=== PATIENT | male | born 1970 | race Caucasian/White ===

== ENCOUNTER 2021-05-01 15:49 | Outpatient (REF) | payer MEDICAID, SELFPAY ==
--- NOTE | ~2021-05-01 | US_ITS ---
EXAMINATION: US VENOUS ULTRASOUND WITH DOPPLER LOWER EXTREMITY, RIGHT CLINICAL INFORMATION: Right lower extremity pain. Evaluate for a deep vein thrombosis. COMPARISON: None TECHNIQUE: Ultrasound of the deep veins is performed from the hip to the calf with compression sonography and color and pulse Doppler assessment. Spectral analysis with color-flow imaging is performed. FINDINGS: There is normal venous compression and respiratory variation and augmented flow. The visualized common femoral vein, superficial femoral vein, profunda femoral vein, popliteal vein, and the trifurcation region shows no evidence of deep venous thrombosis. 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 If the patient's symptoms persist, follow-up ultrasound in 5 days 7 days might be of value to exclude proximal propagation from a nonvisualized calf vein. US/US venous duplex LE RT IMPRESSION: No DVT demonstrated in the right lower extremity. 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
== END 2021-05-01 15:50 | disposition home or self-care (01) ==
LOC: HO.US 15:49
PROVIDERS: Visit Provider Internal Medicine
DX: M79.604 Pain in right leg (principal)
CPT/HCPCS: 93971

== ENCOUNTER 2021-05-03 13:56 | Outpatient (REF) | payer MEDICAID, SELFPAY ==
--- NOTE | ~2021-05-03 | XR_ITS ---
EXAMINATION: XR ANKLE, RIGHT CLINICAL INFORMATION: Pain COMPARISON: Previous x-ray September 2018 TECHNIQUE: AP, lateral, and mortise views of the right ankle. FINDINGS: The bones and soft tissues are normal. No fracture. Alignment is anatomic. Joint spaces are maintained. No joint effusion. XR/XR ankle RT min 3V IMPRESSION: Normal right ankle.
== END 2021-05-03 13:57 | disposition home or self-care (01) ==
LOC: HO.XRAY 13:56
PROVIDERS: PCP Internal Medicine; Visit Provider Internal Medicine
DX: M79.604 Pain in right leg (principal)
CPT/HCPCS: 73610

== ENCOUNTER 2021-05-22 08:07 | Outpatient (REF) | payer MEDICAID, SELFPAY ==
--- NOTE | ~2021-05-22 | XR_ITS ---
EXAMINATION: XR KNEE-BILATERAL CLINICAL INFORMATION: Pain unspecified knee. COMPARISON: None TECHNIQUE: Upright frontal views of both knees and lateral and patellar view of the right knee were obtained. FINDINGS: Right knee: Moderate to severe medial compartmental and mild lateral and patellofemoral compartmental osteoarthrosis related changes are present. Specific note is made of moderate size osteophyte formation along the articular surface of both tibia and fibula. No evidence of any joint effusion. No superimposed fracture and/or subluxation or dislocation. Limited frontal view of the left knee appears unremarkable. XR/XR knee standing BI IMPRESSION: 1. Moderate to severe medial compartmental osteoarthrosis and mild lateral and patellofemoral compartmental osteoarthrosis of the right knee. 2. Limited frontal view only radiograph of the left knee appears unremarkable.
--- NOTE | ~2021-05-22 | XR_ITS ---
EXAMINATION: XR KNEE-BILATERAL CLINICAL INFORMATION: Pain unspecified knee. COMPARISON: None TECHNIQUE: Upright frontal views of both knees and lateral and patellar view of the right knee were obtained. FINDINGS: Right knee: Moderate to severe medial compartmental and mild lateral and patellofemoral compartmental osteoarthrosis related changes are present. Specific note is made of moderate size osteophyte formation along the articular surface of both tibia and fibula. No evidence of any joint effusion. No superimposed fracture and/or subluxation or dislocation. Limited frontal view of the left knee appears unremarkable. XR/XR knee RT 2V IMPRESSION: 1. Moderate to severe medial compartmental osteoarthrosis and mild lateral and patellofemoral compartmental osteoarthrosis of the right knee. 2. Limited frontal view only radiograph of the left knee appears unremarkable.
== END 2021-05-22 08:08 | disposition home or self-care (01) ==
LOC: HO.HOSX 08:07
PROVIDERS: Visit Provider Physician Assistant
DX: M17.11 Unilateral primary osteoarthritis, right knee (principal)
CPT/HCPCS: 20610; 73560; 73565; 99202; J1040

== ENCOUNTER → 2021-06-13 14:56 | Outpatient (BNVA) | payer MEDICAID, SELFPAY | PROVIDERS: PCP Internal Medicine; Visit Provider Nurse Practitioner Family | DX: M47.816 Spondylosis without myelopathy or radiculopathy, lumbar region (principal); M62.838 Other muscle spasm | CPT/HCPCS: 99202 ==

== ENCOUNTER → 2021-09-01 15:57 | Outpatient (BNVA) | payer MEDICAID, SELFPAY | PROVIDERS: PCP Internal Medicine; Visit Provider Nurse Practitioner Family | DX: M17.11 Unilateral primary osteoarthritis, right knee (principal); M62.838 Other muscle spasm; M48.061 Spinal stenosis, lumbar region without neurogenic claudication; M54.16 Radiculopathy, lumbar region | CPT/HCPCS: 99212 ==

== ENCOUNTER → 2021-09-04 13:01 | Outpatient (BNVA) | payer MEDICAID, SELFPAY | PROVIDERS: PCP Internal Medicine; Visit Provider Internal Medicine | DX: M17.11 Unilateral primary osteoarthritis, right knee (principal) | CPT/HCPCS: 20610; J3300 ==

== ENCOUNTER 2021-09-25 14:09 | Outpatient (REF) | payer MEDICAID, SELFPAY | END 2021-09-25 14:10 | disposition home or self-care (01) | LOC: HO.MRI 14:09 | PROVIDERS: Visit Provider Physician Assistant | DX: Z13.89 Encounter for screening for other disorder (principal) ==

== ENCOUNTER 2021-10-11 19:04 | Outpatient (REF) | payer MEDICAID, SELFPAY ==
--- NOTE | ~2021-10-11 | MR_ITS ---
EXAMINATION: MR LUMBAR SPINE WITHOUT CONTRAST CLINICAL INFORMATION: Lumbar radiculopathy. Right leg pain. COMPARISON: MRI dated 08/26/2019. TECHNIQUE: MRI of the lumbar spine was obtained using routine sequences without contrast. FINDINGS: VERTEBRAL BODIES AND PARASPINAL STRUCTURES: The marrow signal is homogeneous. There are no compression fractures. Duap-gk-[id number] loss of disc height and reduced intradiscal signal noted at the L4-L5 level. No new subluxations evident. The paraspinal soft tissues appear normal. The imaged bony pelvis is unremarkable. CONUS MEDULLARIS AND CAUDA EQUINA: Normal, terminating at the level of T12-L1. No lower cord signal abnormality is seen. The cauda equina nerve roots are normal. SPINAL LEVELS: L1-L2: No significant disc pathology. Patent central canal and foramina. L2-L3: Broad-based left foraminal/extraforaminal disc protrusion has increased in size with significant encroachment and further compression of the exiting left L2 nerve root. Hypertrophic facet arthropathy with mild canal narrowing. L3-L4: Diffuse disc bulge present with a broad-based right lateral extraforaminal protrusion, also evident on prior imaging resulting in mild distortion of the extraforaminal right L3 nerve root. Mild facet arthropathy without significant central canal stenosis. L4-L5: Generalized disc bulge. Previous left paracentral disc extrusion has resorbed with residual asymmetric bulging disc and an underlying annular fissure mildly impressing upon the left greater than right L5 nerve roots. Hypertrophic facet arthropathy and mild central canal stenosis. Mild foraminal narrowing. L5-S1: Disc bulge and moderate facet arthropathy without central canal stenosis. Right subarticular zone disc protrusion mildly impressing upon the right S1 nerve root. Mild right foraminal narrowing. MR/MR lumbar spine wo con IMPRESSION: Previous disc extrusion at the L4-L5 level has resorbed with residual asymmetric disc bulge and underlying annular fissure impressing upon the left greater than right L5 nerve roots with mild central canal stenosis. Worsened broad-based left foraminal/extraforaminal disc protrusion at the L2-L3 level with mass effect upon the left L2 nerve root. Mild central canal stenosis. Stable broad-based right extraforaminal disc bulge/protrusion at the L3-L4 level mildly distorting the right L3 nerve root. Moderate facet arthropathy and focal right subarticular zone disc protrusion at the L5-S1 level mildly impressing upon the right S1 nerve root, similar to previous imaging.
== END 2021-10-11 19:05 | disposition home or self-care (01) ==
LOC: HO.MRI 19:04
PROVIDERS: Visit Provider Physician Assistant
DX: M54.16 Radiculopathy, lumbar region (principal)
CPT/HCPCS: 72148

== ENCOUNTER → 2022-02-15 14:17 | Outpatient (BNVA) | payer MEDICAID, SELFPAY | PROVIDERS: PCP Family Medicine; Visit Provider Physician Assistant | DX: M17.11 Unilateral primary osteoarthritis, right knee (principal) | CPT/HCPCS: 20610; 99212; J1040 ==

== ENCOUNTER → 2022-02-20 15:47 | Outpatient (BNVA) | payer MEDICAID, SELFPAY | PROVIDERS: PCP Family Medicine; Visit Provider Nurse Practitioner Family | DX: M54.16 Radiculopathy, lumbar region (principal); M48.061 Spinal stenosis, lumbar region without neurogenic claudication | CPT/HCPCS: 99212 ==

== ENCOUNTER 2022-04-11 06:41 | Outpatient (REF) | payer MEDICAID, SELFPAY ==
--- NOTE | ~2022-04-11 | FL_ITS ---
EXAMINATION: XR FLUOROSCOPY WITH IMAGES CLINICAL INFORMATION: M48.061 - Spinal stenosis, lumbar region without neurogenic claudication COMPARISON: MR lumbar spine 10/11/2021 TECHNIQUE: Fluoroscopy performed by Dr. Rasheed Overton. Fluoroscopy time: 0.1 minutes. Cumulative Dose: 4.43 mGy. DAP: 0.360 Gy-cm2. Images: 2. FINDINGS: There is a spinal needle at the L5-S1 interlaminar space. There is contrast present in the epidural space. No visible vascular communication. FL/FL guidance in treatment room IMPRESSION: Fluoroscopy for pain management procedure.
== END 2022-04-11 06:42 | disposition home or self-care (01) ==
LOC: HO.RADIR 06:41
PROVIDERS: Visit Provider Internal Medicine
DX: M48.061 Spinal stenosis, lumbar region without neurogenic claudication (principal); M54.16 Radiculopathy, lumbar region
CPT/HCPCS: 62323; J1040

== ENCOUNTER → 2023-01-22 10:37 | Outpatient (BNVA) | payer MEDICAID, SELFPAY | PROVIDERS: PCP Family Medicine; Visit Provider Surgery Vascular Surgery | DX: I83.12 Varicose veins of left lower extremity with inflammation (principal) | CPT/HCPCS: 99202 ==

== ENCOUNTER 2024-01-31 15:10 | Outpatient (REF) | payer MEDICAID, SELFPAY ==
--- NOTE | ~2024-01-31 | XR_ITS ---
EXAMINATION: XR RIBS, LEFT CLINICAL INFORMATION: Left rib pain, injury COMPARISON: None available. TECHNIQUE: 3 views of the left ribs were obtained. FINDINGS: Lungs are clear. No consolidation, pneumothorax, or pleural effusion. The cardiomediastinal silhouette and pulmonary vasculature are normal. Osseous structures are unremarkable. Ribs are intact. No fractures are identified. XR/XR ribs LT min 3V w CXR1V IMPRESSION: Unremarkable examination.
== END 2024-01-31 15:11 | disposition home or self-care (01) ==
LOC: HO.HHCX 15:10
PROVIDERS: Visit Provider Internal Medicine Geriatric Medicine
DX: R07.81 Pleurodynia (principal)
CPT/HCPCS: 71101

== ENCOUNTER 2024-05-22 10:53 | Outpatient (AMB) | payer MEDICAID, SELFPAY ==
--- NOTE | 2024-05-22 10:59 | MHC.OFFVIS ---
Vital Signs 05/22/24 11:01 Height 5 ft 9 in Weight 162 lb BMI 23.9 BP 120/73 Blood Pressure Location Lt brachial Position Sitting Respiration 14 Pulse 69 Pulse Source Pulse Oximeter Pulse Oximetry (%) 98 Oxygen Delivery Method Room Air Intake Visit Reasons: Lumbar back pain affecting right leg Allergies bee venom protein (honey bee) Allergy (Severe, Verified 05/22/24 11:02) Swelling Medication List - Last Reconciled 05/22/24 by Susy Salinas LPN glecaprevir-pibrentasvir 100-40 mg (Mavyret) 3 tabs PO DAILY HPI HPI Lumbar back pain affecting right leg: Details: 54-year-old male who presents today to the office for a lumbar back pain. He reports that his pain started about 7 months ago and worsened recently. His pain starts in the lower back region and radiates down to the right leg. Prolonged sitting worsens the pain. His pain worsens after walking two blocks. He does occasional gentle exercises at home.?He still has Weiss?s cyst in his knee. Past procedures: 04/11/22: Interlaminar epidural steroid injection, L5-S1, right parasaggital: More than 80% relief for more than 1.5 years 09/04/21: right knee intra-articular corticosteroid injection. 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 Alert and oriented. Mood and affect appropriate. Follows and participates in conversation appropriately. Respiratory effort is unlabored. Able to transition from sit to stand unassisted. Ambulates with bilaterally normal heel strike and toe off. Results Reviewed Results Reviewed: No imaging is available for review. Assessment & Plan Assessment & Plan (1) Lumbar radiculopathy: Code(s): M54.16 - Radiculopathy, lumbar region Category: Medical Plan We will schedule him for a right parasagittal interlaminar L4-5 epidural steroid injection. Discussed the risks and benefits of the procedure with the patient in detail. All questions were answered. The patient is on board with the plan. Justification for interventional therapy: ? Patient with average pain > 6/10 ? Patient has exhausted conservative therapy. ? Patient continuing home exercise program . Last injection provided more than 80% relief for 1.5 years . Patient has a good understanding of their pain condition and has appropriate mental and social support Scribed for Dr. Overton by Joshua Pa, medical services coordinator, on 05/22/2024. I, Dr. Overton, have personally reviewed and agree with the information entered by the scribe. Coding Level of Care Code Est Pt Level 3 (27928) Diagnoses Lumbar radiculopathy M54.16
[2024-05-22 11:01] VITALS: BP 120/73; PULSE 69; RESP 14; O2SAT 98; BMI 23.9
== END 2024-05-22 11:39 | disposition home or self-care (01) ==
PROVIDERS: PCP Internal Medicine Geriatric Medicine; Visit Provider Internal Medicine
DX: M54.16 Radiculopathy, lumbar region (principal)
CPT/HCPCS: 99213

== ENCOUNTER → 2024-05-22 10:53 | Outpatient (BNVA) | payer MEDICAID, SELFPAY | PROVIDERS: PCP Internal Medicine Geriatric Medicine; Visit Provider Internal Medicine | DX: M54.16 Radiculopathy, lumbar region (principal) | CPT/HCPCS: 99212 ==

== ENCOUNTER 2024-06-11 06:15 | Outpatient (REF) | payer MEDICAID, SELFPAY | END 2024-06-11 06:16 | disposition home or self-care (01) | LOC: CF 06:15 | PROVIDERS: Visit Provider Internal Medicine | DX: M48.061 Spinal stenosis, lumbar region without neurogenic claudication (principal); M54.16 Radiculopathy, lumbar region | CPT/HCPCS: 62323; J2003; J3301; Q9967 ==

== ENCOUNTER 2024-06-11 09:56 | Outpatient (AMB) | payer MEDICAID, SELFPAY ==
[2024-06-11 10:01] VITALS: BP 173/90; PULSE 64; O2SAT 98
--- NOTE | 2024-06-11 10:01 | MHC.OFFVIS ---
Vital Signs 06/11/24 10:01 06/11/24 10:30 BP 173/90 H 160/98 H Blood Pressure Location Rt brachial Lt brachial Position Sitting Sitting Pulse 64 78 Pulse Source Pulse Oximeter Pulse Oximeter Pulse Oximetry (%) 98 96 Oxygen Delivery Method Room Air Room Air Intake Visit Reasons: Right L4-L5 parasagittal interlaminar MIKI Allergies bee venom protein (honey bee) Allergy (Severe, Verified 05/22/24 11:02) Swelling HPI HPI Right L4-L5 parasagittal interlaminar MIKI: Details: Patient presents for scheduled procedure. Denies any recent cough, cold, infection, fever or other significant changes in medical history since last office visit. 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 Social History (Updated 01/22/23 @ 10:45 by MAGNOLIA Cruz) Patient Tobacco Use Status: Current everyday Tobacco user Cigarettes Per Day: 3 Current occupational status: employed Current occupation: rt handed/industrial coating Physical Exam Vital Signs: Last Vital Signs Pulse 64 06/11/24 10:01 BP 173/90 H 06/11/24 10:01 Pulse Ox 98 06/11/24 10:01 Oxygen Delivery Method Room Air 06/11/24 10:01 Office Procedures AMB Joint Injection/Aspiration Joint Injection/Aspiration Details: Interlaminar epidural steroid injection, L4-5, right parasaggital After obtaining written consent, pre-procedure blood pressure and heart rate were stable and recorded in the nursing record. The patient was placed in the prone position. The lumbar area was widely prepped with chloraprep and draped in sterile fashion. Fluoroscopic guidance was used to identify the desired interlaminar space and for needle placement. Subcutaneous 0.5% lidocaine was used to anesthetize the skin overlying the target. A 20-gauge Payne needle was advanced to the epidural space using loss of resistance to contrast technique under fluoroscopic AP and contralateral oblique views. There was no evidence of heme or CSF and no paresthesias were elicited with needle placement. Confirmation of epidural needle placement was performed with 1cc of omnipaque 180. Next 3 ml 0.5% lidocaine mixed with 80 mg triamcinilone was administered epidurally with no pain elicited on injection. The needle tract tubing was then cleared with 1 ml of 0.5% lidocaine. The needle was removed, skin cleansed and a sterile bandage was applied. The patient tolerated the procedure well and no complications were encountered. Following the procedure the patient's vital signs were stable. The patient was discharged home in good condition with post-procedural instructions. Time Out: Immediately prior to the procedure, the following was verbally confirmed that there is a signed consent form and that the correct patient, planned procedure, site and side are consistent with documentation and that necessary equipment and/or blood products are available prior to the start of the case. Complications: none EBL: <2 cc Coding 72658 - Caudal/Lumbar Epidural/Interlaminar with fluoroscopy Procedure code (CPT) selection complete Assessment & Plan Assessment & Plan (1) Lumbar radiculopathy: Code(s): M54.16 - Radiculopathy, lumbar region Category: Medical Plan Patient is status post right L4-5 interlaminar parasagittal MIKI. Patient tolerated procedure well and was discharged home in stable condition with discharge instructions. All questions were answered. We will follow-up via telephone or in clinic to assess response to therapy. A follow-up appointment was made during today's visit. Orders: Orders FL guidance in treatment room Today M48.061 - Spinal stenosis, lumbar region without neurogenic claudication Coding Level of Care Code Procedure Only Diagnoses Lumbar radiculopathy M54.16 CPT Codes Coding - Joint 11: 32773 - Caudal/Lumbar Epidural/Interlaminar with fluoroscopy ([id number])
[2024-06-11 10:30] VITALS: BP 160/98; PULSE 78; O2SAT 96
== END 2024-06-11 10:31 | disposition home or self-care (01) ==
LOC: HO.PMCPRC 09:56
PROVIDERS: PCP Internal Medicine Geriatric Medicine; Visit Provider Internal Medicine
DX: M54.16 Radiculopathy, lumbar region (principal)
CPT/HCPCS: 62323